=== PATIENT | female | born 1960 ===

== ENCOUNTER 2021-03-06 20:57 | Inpatient (IN) ==
[2021-03-07] MEDS ORDERED: Dextrose Gel 15 GM/37.5 ML TUBE PO PRN ×2 (00:38)
[2021-03-07] MEDS ORDERED: *HR* Dextrose 50 % in Water (Vial) 50 ML VIAL IVP PRN (00:38)
[2021-03-07] MEDS ORDERED: D5% in Water 1,000 ML IVC PRN (00:38)
[2021-03-07 00:42] LABS: Basophils % 0.2 %; Eosinophils % 0.2 %; Hematocrit 38.9 % (35.3-44.9); Hemoglobin 12.9 g/dL (11.5-15.4); Immature Granulocytes % 0.3 % (0-4); Lymphocytes # 0.6 K/mcL (0.6-4.6); Lymphocytes % 9.5 %; Mean Corpuscular HGB Conc 33.2 g/dL (31.6-35.5); Mean Corpuscular Hemoglobin 29.5 pg (28.0-33.3); Mean Platelet Volume 10.1 fL (9.4-12.4); Monocytes # 0.1 K/mcL (0.0-1.3); Monocytes % 0.9 %; Neutrophils # 5.7 K/mcL (1.6-8.9); Platelet Count 200 K/mcL (140-400); Red Blood Count 4.37 M/mcL (3.82-4.97); Red Cell Distribution Width 12.6 % (11.5-14.5); Segmented Neutrophils % 88.9 %; White Blood Count 6.4 K/mcL (4.3-11.1)
[2021-03-07 00:43] LABS: Bilirubin,Urine Negative (Negative); Blood,Urine Negative (Negative); Clarity,Urine Clear (Clear); Color,Urine Colorless (Yellow); Glucose,Urine (UA) >=1000 mg/dL (Normal); Ketones,Urine Negative (Negative); Leukocyte Esterase,Urine Negative (Negative); Nitrite,Urine Negative (Negative); Protein,Urine Negative (Neg-Trace); RBC,Urine 0-3 per hpf (0-3); Specific Gravity,Urine 1.009 (1.010-1.025); Squamous Epithelial Cell,Urine Few per hpf (None-Few); Urobilinogen,Urine Normal (Normal); WBC,Urine 0-3 per hpf (0-3)
[2021-03-07] MEDS ORDERED: Perflutren Lipid Microsphere 1.3 ML in 0.9 % Sodium Chloride 8.7 ML IVP PRN (00:54)
[2021-03-07] MEDS: Insulin LISPRO 300 UNITS/3 ML VIAL SUBQ SCH ×5 (01:00→19:51)
[2021-03-07 01:03] LABS: Alanine Aminotransferase 17 Units/L (7-52); Albumin 3.8 g/dL (3.5-5.7); Albumin/Globulin Ratio 1.2 (1.1-2.2); Alkaline Phosphatase 93 Units/L (34-104); Aspartate Amino Transferase 11 Units/L (13-39); BUN/Creatinine Ratio 29 (6-26); Bilirubin,Total 0.4 mg/dL (0.3-1.0); Blood Urea Nitrogen 30 mg/dL (6-20); Calcium 8.7 mg/dL (8.6-10.3); Carbon Dioxide 30 mEq/L (23-29); Chloride 95 mEq/L (98-107); Globulin 3.1 g/dL (2.4-3.5); Glucose 384 mg/dL (70-105); Osmolality,Calculated 302 (280-300); Sodium 135 mEq/L (136-145); Total Protein 6.9 g/dL (6.4-8.9); eGFR For African Americans > 60 (> 60); eGFR For Non-African Americans 54 (> 60)
[2021-03-07 01:06] LABS: Troponin I < 0.03 ng/mL (< 0.04)
[2021-03-07 01:18] LABS: Thyroid Stimulating Hormone 1.811 mcIU/mL (0.340-5.600)
[2021-03-07] MEDS ORDERED: Naloxone 0.4 MG/ML INJ IVP PRN (01:26)
[2021-03-07] MEDS ORDERED: Acetaminophen 325 MG TABLET PO PRN (01:26)
[2021-03-07 01:29] LABS: Folate 17.7 ng/mL (3.0-16.0)
[2021-03-07] MEDS: Azithromycin 500 MG in 0.9 % Sodium Chloride 250 ML IVPB SCH (01:31)
[2021-03-07] MEDS ORDERED: Furosemide 20 MG/2 ML VIAL IVP SCH (01:45)
[2021-03-07 03:24] LABS: Estimated Average Glucose 243 mg/dl; Hemoglobin A1C 10.1 %
[2021-03-07] MEDS: Nicotine 14 MG PATCH.TD24 TD SCH (04:10)
[2021-03-07] MEDS: Levalbuterol Neb 1.25 MG/3 ML IH SCH ×4 (04:23→21:51)
[2021-03-07 05:34] LABS: ABG Base Excess 5 mEq/L (-2 to 3); ABG HCO3 31 mEq/L (21-27); ABG Oxygen Saturation 89 % (95-98); ABG PCO2 48 mmHg (35-45); ABG PH 7.42 pH Units (7.32-7.45); ABG PO2 56 mmHg (85-104); ABG TCO2 32 mEq/L (20-26)
[2021-03-07] MEDS: *HR* Heparin 5,000 UNIT/ML VIAL SQ SCH ×3 (05:53→20:01)
[2021-03-07] MEDS: Furosemide 20 MG/2 ML VIAL IVP SCH ×2 (08:41→19:50)
[2021-03-07] MEDS: methylPREDNISolone 125 MG/2 ML VIAL IVP SCH ×2 (08:42→15:26)
[2021-03-07] MEDS ORDERED: *HR* OxyCODONE/APAP 5/325 TABLET PO ONE (11:49)
[2021-03-07] MEDS: *HR* OxyCODONE/APAP 5/325 TABLET PO PRN (18:45)
[2021-03-07] MEDS: carvediloL 25 MG TABLET PO SCH (19:50)
[2021-03-07] MEDS: Gabapentin 300 MG CAPSULE PO SCH (19:50)
[2021-03-07] MEDS: Insulin DETEMIR 100 UNIT/ML X5UNITS SUBQ SCH (19:50)
[2021-03-07] MEDS ORDERED: NON-FORMULARY MEDICATION 1 EACH EACH (Fluticasone Propion/Salmeterol [Fluticasone-Salmeter IH SCH (21:00)
[2021-03-07] MEDS: Budesonide/Formoterol 80/4.5 1 PUFF INH IH SCH (21:52)
[2021-03-08] MEDS: Azithromycin 500 MG in 0.9 % Sodium Chloride 250 ML IVPB SCH (00:10)
[2021-03-08] MEDS: methylPREDNISolone 125 MG/2 ML VIAL IVP SCH ×3 (00:11→16:21)
[2021-03-08] MEDS: Nicotine 14 MG PATCH.TD24 TD SCH (00:12)
[2021-03-08] MEDS ORDERED: Insulin DETEMIR 100 UNIT/ML X5UNITS SUBQ ONE (00:22)
[2021-03-08] MEDS: *HR* OxyCODONE/APAP 5/325 TABLET PO PRN ×3 (00:55→16:19)
[2021-03-08] MEDS: Levalbuterol Neb 1.25 MG/3 ML IH SCH ×4 (04:06→22:23)
[2021-03-08] MEDS: *HR* Heparin 5,000 UNIT/ML VIAL SQ SCH ×3 (06:27→20:35)
[2021-03-08 06:40] LABS: Hematocrit 36.2 % (35.3-44.9); Hemoglobin 12.2 g/dL (11.5-15.4); Mean Corpuscular HGB Conc 33.7 g/dL (31.6-35.5); Mean Corpuscular Hemoglobin 29.8 pg (28.0-33.3); Mean Corpuscular Volume 88.5 fL (83.0-100.0); Mean Platelet Volume 10.7 fL (9.4-12.4); Platelet Count 193 K/mcL (140-400); Red Blood Count 4.09 M/mcL (3.82-4.97); Red Cell Distribution Width 12.6 % (11.5-14.5); White Blood Count 8.3 K/mcL (4.3-11.1)
[2021-03-08 06:53] LABS: BUN/Creatinine Ratio 38 (6-26); Blood Urea Nitrogen 40 mg/dL (6-20); Calcium 8.7 mg/dL (8.6-10.3); Carbon Dioxide 28 mEq/L (23-29); Chloride 97 mEq/L (98-107); Glucose 394 mg/dL (70-105); Osmolality,Calculated 308 (280-300); Potassium 3.9 mEq/L (3.5-5.1); Sodium 136 mEq/L (136-145); eGFR For African Americans > 60 (> 60); eGFR For Non-African Americans 54 (> 60)
[2021-03-08] MEDS: Aspirin Enteric Coated 325 MG Tablet PO SCH (07:53)
[2021-03-08] MEDS: Gabapentin 300 MG CAPSULE PO SCH ×2 (07:54→20:36)
[2021-03-08] MEDS: amLODIPine 5 MG TABLET PO SCH (07:54)
[2021-03-08] MEDS: carvediloL 25 MG TABLET PO SCH ×2 (07:56→20:36)
[2021-03-08] MEDS: Furosemide 20 MG/2 ML VIAL IVP SCH ×2 (07:56→20:36)
[2021-03-08] MEDS: Insulin LISPRO 300 UNITS/3 ML VIAL SUBQ SCH ×4 (07:59→20:37)
[2021-03-08] MEDS: Insulin DETEMIR 100 UNIT/ML X5UNITS SUBQ SCH ×2 (07:59→20:36)
[2021-03-08] MEDS ORDERED: PANTOPRAZOLE SODIUM 40 MG PO SCH (09:00)
[2021-03-08] MEDS ORDERED: hydroCHLOROthiazide 25 MG TABLET PO SCH (09:00)
[2021-03-08] MEDS: Budesonide/Formoterol 80/4.5 1 PUFF INH IH SCH ×2 (10:43→22:24)
[2021-03-09] MEDS ORDERED: 0.9 % Sodium Chloride 250 ML ONE (00:01)
[2021-03-09] MEDS: *HR* OxyCODONE/APAP 5/325 TABLET PO PRN ×2 (00:09→16:32)
[2021-03-09] MEDS: Azithromycin 500 MG in 0.9 % Sodium Chloride 250 ML IVPB SCH (00:10)
[2021-03-09] MEDS: Nicotine 14 MG PATCH.TD24 TD SCH (00:16)
[2021-03-09] MEDS: Levalbuterol Neb 1.25 MG/3 ML IH SCH ×4 (03:34→21:56)
[2021-03-09 05:23] LABS: Hemoglobin 12.1 g/dL (11.5-15.4); Mean Corpuscular HGB Conc 32.7 g/dL (31.6-35.5); Mean Corpuscular Hemoglobin 29.2 pg (28.0-33.3); Mean Corpuscular Volume 89.4 fL (83.0-100.0); Mean Platelet Volume 10.5 fL (9.4-12.4); Platelet Count 187 K/mcL (140-400); Red Blood Count 4.14 M/mcL (3.82-4.97); Red Cell Distribution Width 12.8 % (11.5-14.5); White Blood Count 8.6 K/mcL (4.3-11.1)
[2021-03-09] MEDS: *HR* Heparin 5,000 UNIT/ML VIAL SQ SCH ×3 (05:31→21:33)
[2021-03-09] MEDS: methylPREDNISolone 125 MG/2 ML VIAL IVP SCH ×2 (05:31→16:31)
[2021-03-09 05:47] LABS: BUN/Creatinine Ratio 43 (6-26); Blood Urea Nitrogen 43 mg/dL (6-20); Calcium 8.9 mg/dL (8.6-10.3); Carbon Dioxide 32 mEq/L (23-29); Chloride 99 mEq/L (98-107); Glucose 210 mg/dL (70-105); Osmolality,Calculated 305 (280-300); Potassium 3.3 mEq/L (3.5-5.1); Sodium 139 mEq/L (136-145); eGFR For African Americans > 60 (> 60); eGFR For Non-African Americans 56 (> 60)
[2021-03-09] MEDS ORDERED: Potassium Chloride Elixir 20 MEQ/15 ML UDC PO ONE (07:39)
[2021-03-09] MEDS: Aspirin Enteric Coated 325 MG Tablet PO SCH (08:04)
[2021-03-09] MEDS: amLODIPine 5 MG TABLET PO SCH (08:05)
[2021-03-09] MEDS: Gabapentin 300 MG CAPSULE PO SCH ×2 (08:05→21:28)
[2021-03-09] MEDS: carvediloL 25 MG TABLET PO SCH ×2 (08:05→21:28)
[2021-03-09] MEDS: Furosemide 20 MG/2 ML VIAL IVP SCH ×2 (08:06→21:33)
[2021-03-09] MEDS: Insulin DETEMIR 100 UNIT/ML X5UNITS SUBQ SCH ×2 (08:08→21:30)
[2021-03-09] MEDS: Insulin LISPRO 300 UNITS/3 ML VIAL SUBQ SCH ×4 (08:08→21:31)
[2021-03-09] MEDS: Budesonide/Formoterol 80/4.5 1 PUFF INH IH SCH ×2 (10:07→21:53)
[2021-03-10] MEDS: Azithromycin 500 MG in 0.9 % Sodium Chloride 250 ML IVPB SCH (00:14)
[2021-03-10] MEDS: *HR* OxyCODONE/APAP 5/325 TABLET PO PRN ×2 (00:15→19:05)
[2021-03-10] MEDS: Nicotine 14 MG PATCH.TD24 TD SCH (00:22)
[2021-03-10] MEDS: Levalbuterol Neb 1.25 MG/3 ML IH SCH ×4 (03:27→22:16)
[2021-03-10 03:49] LABS: Basophils % 0.1 %; Hematocrit 36.5 % (35.3-44.9); Immature Granulocytes % 1.2 % (0-4); Lymphocytes # 0.4 K/mcL (0.6-4.6); Lymphocytes % 5.6 %; Mean Corpuscular HGB Conc 32.9 g/dL (31.6-35.5); Mean Corpuscular Hemoglobin 29.9 pg (28.0-33.3); Monocytes # 0.4 K/mcL (0.0-1.3); Monocytes % 5.1 %; Neutrophils # 6.9 K/mcL (1.6-8.9); Platelet Count 210 K/mcL (140-400); Red Blood Count 4.01 M/mcL (3.82-4.97); White Blood Count 7.8 K/mcL (4.3-11.1)
[2021-03-10 04:09] LABS: Calcium 8.2 mg/dL (8.6-10.3); Potassium 3.8 mEq/L (3.5-5.1)
[2021-03-10] MEDS: *HR* Heparin 5,000 UNIT/ML VIAL SQ SCH ×3 (05:39→20:25)
[2021-03-10] MEDS: methylPREDNISolone 125 MG/2 ML VIAL IVP SCH ×2 (05:39→16:54)
[2021-03-10] MEDS ORDERED: Regadenoson 0.4 MG/5 ML SYRINGE IVP ONE ×2 (07:14→07:18)
[2021-03-10] MEDS: carvediloL 25 MG TABLET PO SCH ×2 (09:35→19:41)
[2021-03-10] MEDS: amLODIPine 5 MG TABLET PO SCH (09:35)
[2021-03-10] MEDS: Gabapentin 300 MG CAPSULE PO SCH ×2 (09:35→19:41)
[2021-03-10] MEDS: Insulin DETEMIR 100 UNIT/ML X5UNITS SUBQ SCH ×2 (09:36→20:24)
[2021-03-10] MEDS: Aspirin Enteric Coated 325 MG Tablet PO SCH (09:36)
[2021-03-10] MEDS: Insulin LISPRO 300 UNITS/3 ML VIAL SUBQ SCH ×4 (09:40→19:45)
[2021-03-10] MEDS: Budesonide/Formoterol 80/4.5 1 PUFF INH IH SCH ×2 (10:55→22:16)
[2021-03-11 02:00] LABS: Basophils % 0.1 %; Hematocrit 35.9 % (35.3-44.9); Hemoglobin 11.4 g/dL (11.5-15.4); Immature Granulocytes % 1.2 % (0-4); Lymphocytes # 0.4 K/mcL (0.6-4.6); Lymphocytes % 6.3 %; Mean Corpuscular HGB Conc 31.8 g/dL (31.6-35.5); Mean Corpuscular Hemoglobin 28.8 pg (28.0-33.3); Mean Corpuscular Volume 90.7 fL (83.0-100.0); Mean Platelet Volume 10.9 fL (9.4-12.4); Monocytes # 0.3 K/mcL (0.0-1.3); Neutrophils # 6.1 K/mcL (1.6-8.9); Platelet Count 178 K/mcL (140-400); Red Blood Count 3.96 M/mcL (3.82-4.97); Red Cell Distribution Width 12.9 % (11.5-14.5); Segmented Neutrophils % 88.4 %; White Blood Count 6.9 K/mcL (4.3-11.1)
[2021-03-11 02:19] LABS: BUN/Creatinine Ratio 37 (6-26); Blood Urea Nitrogen 36 mg/dL (6-20); Calcium 8.3 mg/dL (8.6-10.3); Carbon Dioxide 28 mEq/L (23-29); Chloride 104 mEq/L (98-107); Glucose 222 mg/dL (70-105); Osmolality,Calculated 305 (280-300); Potassium 4.2 mEq/L (3.5-5.1); Sodium 140 mEq/L (136-145); eGFR For African Americans > 60 (> 60); eGFR For Non-African Americans 58 (> 60)
[2021-03-11] MEDS: Levalbuterol Neb 1.25 MG/3 ML IH SCH ×3 (03:48→15:44)
[2021-03-11] MEDS: Nicotine 14 MG PATCH.TD24 TD SCH (05:38)
[2021-03-11] MEDS: methylPREDNISolone 125 MG/2 ML VIAL IVP SCH (06:37)
[2021-03-11] MEDS: *HR* Heparin 5,000 UNIT/ML VIAL SQ SCH ×2 (06:38→15:30)
[2021-03-11] MEDS: Insulin LISPRO 300 UNITS/3 ML VIAL SUBQ SCH ×3 (08:13→12:26)
[2021-03-11] MEDS: Aspirin Enteric Coated 325 MG Tablet PO SCH (08:46)
[2021-03-11] MEDS: carvediloL 25 MG TABLET PO SCH (08:46)
[2021-03-11] MEDS: *HR* OxyCODONE/APAP 5/325 TABLET PO PRN ×2 (08:46→15:29)
[2021-03-11] MEDS: Gabapentin 300 MG CAPSULE PO SCH (08:46)
[2021-03-11] MEDS: amLODIPine 5 MG TABLET PO SCH (08:46)
[2021-03-11] MEDS ORDERED: Furosemide 40 MG TABLET PO SCH (10:15)
[2021-03-11] MEDS: Budesonide/Formoterol 80/4.5 1 PUFF INH IH SCH (11:20)
[2021-03-11] MEDS: Insulin DETEMIR 100 UNIT/ML X5UNITS SUBQ SCH (12:30)
[2021-03-11 15:54] VITALS: BP 161/74; PULSE 53; TEMP 98.5; O2SAT 97
[2021-03-12] MEDS ORDERED: predniSONE 20 MG TABLET PO SCH (09:00)
== END 2021-03-11 16:39 | disposition home health service (06) | DRG 140 ==
LOC: CDU → SUATTDRO 23:03 → CDU 23:06 → 2ANU 03-07 13:21 → SUATTDRO 03-09 15:42
PROVIDERS: ADMIT Internal Medicine; ATTEND Internal Medicine

== ENCOUNTER 2021-04-03 16:44 | Inpatient (IN) ==
[2021-04-03] MEDS ORDERED: 0.9 % Sodium Chloride 1,000 ML IVC ONE (19:49)
[2021-04-03] MEDS ORDERED: Ipratropium/Albuterol Neb 3 ML IH ONE (20:33)
[2021-04-03 20:39] LABS: Basophils % 0.3 %; Eosinophils % 0.6 %; Hematocrit 37.5 % (35.3-44.9); Hemoglobin 12.4 g/dL (11.5-15.4); Immature Granulocytes % 0.5 % (0-4); Lymphocytes # 1.6 K/mcL (0.6-4.6); Lymphocytes % 25.4 %; Mean Corpuscular HGB Conc 33.1 g/dL (31.6-35.5); Mean Corpuscular Hemoglobin 29.1 pg (28.0-33.3); Mean Platelet Volume 9.8 fL (9.4-12.4); Monocytes # 0.9 K/mcL (0.0-1.3); Monocytes % 13.9 %; Neutrophils # 3.8 K/mcL (1.6-8.9); Platelet Count 244 K/mcL (140-400); Red Blood Count 4.26 M/mcL (3.82-4.97); Red Cell Distribution Width 12.5 % (11.5-14.5); Segmented Neutrophils % 59.3 %; White Blood Count 6.4 K/mcL (4.3-11.1)
[2021-04-03 21:00] LABS: BUN/Creatinine Ratio 27 (6-26); Blood Urea Nitrogen 41 mg/dL (6-20); Calcium 9.3 mg/dL (8.6-10.3); Carbon Dioxide 34 mEq/L (23-29); Chloride 88 mEq/L (98-107); Glucose 405 mg/dL (70-105); Osmolality,Calculated 301 (280-300); Potassium 3.7 mEq/L (3.5-5.1); Sodium 132 mEq/L (136-145); eGFR For African Americans 43 (> 60); eGFR For Non-African Americans 36 (> 60)
[2021-04-03 21:08] LABS: Troponin I < 0.03 ng/mL (< 0.04)
[2021-04-03 21:12] LABS: Bacteria,Urine Few per hpf (None-Few); Bilirubin,Urine Negative (Negative); Blood,Urine Negative (Negative); Clarity,Urine Clear (Clear); Color,Urine Colorless (Yellow); Glucose,Urine (UA) 500 mg/dL (Normal); Ketones,Urine Negative (Negative); Leukocyte Esterase,Urine Negative (Negative); Nitrite,Urine Negative (Negative); PH,Urine 5.5 pH Units (5.0-8.0); Protein,Urine Negative (Neg-Trace); RBC,Urine 0-3 per hpf (0-3); Specific Gravity,Urine 1.008 (1.010-1.025); Squamous Epithelial Cell,Urine Few per hpf (None-Few); Urobilinogen,Urine Normal (Normal); WBC,Urine 0-3 per hpf (0-3)
[2021-04-03] MEDS ORDERED: Naloxone 0.4 MG/ML INJ IVP PRN (22:38)
[2021-04-03] MEDS ORDERED: Dextrose Gel 15 GM/37.5 ML TUBE PO PRN ×2 (23:11)
[2021-04-03] MEDS ORDERED: D5% in Water 1,000 ML IVC PRN (23:11)
[2021-04-03] MEDS ORDERED: *HR* Dextrose 50 % in Water (Vial) 50 ML VIAL IVP PRN (23:11)
[2021-04-03] MEDS ORDERED: Insulin DETEMIR 100 UNIT/ML X5UNITS SUBQ SCH (23:15)
[2021-04-03 23:49] LABS: Amphetamine Screen,Urine Negative ng/mL (Cutoff=1000); Barbiturate Screen,Urine Negative ng/mL (Cutoff=200); Benzodiazepines Screen,Urine Negative ng/mL (Cutoff=200); Cannabinoid Screen,Urine Positive ng/mL (Cutoff = 50); Cocaine Screen,Urine Negative ng/mL (Cutoff= 300); Opiate Screen,Urine Negative ng/mL (Cutoff=300); Phencyclidine Screen,Urine Negative ng/mL (Cutoff=25)
[2021-04-04] MEDS: Nicotine 14 MG PATCH.TD24 TD SCH (01:03)
[2021-04-04] MEDS: Ipratropium/Albuterol Neb 3 ML IH SCH ×4 (03:26→21:42)
[2021-04-04] MEDS ORDERED: Insulin LISPRO 300 UNITS/3 ML VIAL SUBQ ONE ×2 (04:09→05:51)
[2021-04-04 05:17] LABS: Basophils % 0.3 %; Hematocrit 37.3 % (35.3-44.9); Hemoglobin 12.6 g/dL (11.5-15.4); Immature Granulocytes % 0.3 % (0-4); Lymphocytes # 0.6 K/mcL (0.6-4.6); Lymphocytes % 10.6 %; Mean Corpuscular HGB Conc 33.8 g/dL (31.6-35.5); Mean Corpuscular Hemoglobin 29.8 pg (28.0-33.3); Mean Corpuscular Volume 88.2 fL (83.0-100.0); Mean Platelet Volume 10.3 fL (9.4-12.4); Monocytes # 0.1 K/mcL (0.0-1.3); Monocytes % 1.9 %; Neutrophils # 5.1 K/mcL (1.6-8.9); Platelet Count 235 K/mcL (140-400); Red Blood Count 4.23 M/mcL (3.82-4.97); Red Cell Distribution Width 12.4 % (11.5-14.5); Segmented Neutrophils % 86.9 %; White Blood Count 5.9 K/mcL (4.3-11.1)
[2021-04-04 05:31] LABS: Prothrombin Time 11.7 Seconds (9.4-12.1)
[2021-04-04 05:43] LABS: Albumin 3.7 g/dL (3.5-5.7); Albumin/Globulin Ratio 1.4 (1.1-2.2); Bilirubin,Total 0.5 mg/dL (0.3-1.0); Calcium 9.2 mg/dL (8.6-10.3); Globulin 2.7 g/dL (2.4-3.5); Magnesium 1.6 mg/dL (1.6-2.6); Potassium 3.8 mEq/L (3.5-5.1); Total Protein 6.4 g/dL (6.4-8.9)
[2021-04-04 05:51] LABS: Chol/HDL Ratio 3.5 (0-4.9); Cholesterol 186 mg/dL (< 200); HDL Cholesterol 53 mg/dL (40-59); LDL Cholesterol,Calculated 111 mg/dL (< 100); LDL Cholesterol,Direct 114 mg/dL (75-193); Triglycerides 111 mg/dL (< 150); Troponin I < 0.03 ng/mL (< 0.04)
[2021-04-04] MEDS: Gabapentin 300 MG CAPSULE PO SCH ×2 (07:59→21:29)
[2021-04-04] MEDS: carvediloL 6.25 MG TABLET PO SCH ×2 (07:59→21:29)
[2021-04-04] MEDS: amLODIPine 5 MG TABLET PO SCH (07:59)
[2021-04-04] MEDS: Insulin LISPRO 300 UNITS/3 ML VIAL SUBQ SCH ×5 (08:00→21:31)
[2021-04-04 11:35] LABS: Thyroid Stimulating Hormone 0.195 mcIU/mL (0.340-5.600)
[2021-04-04 12:05] LABS: Estimated Average Glucose 243 mg/dl; Hemoglobin A1C 10.1 %
[2021-04-04] MEDS ORDERED: Insulin LISPRO 300 UNITS/3 ML VIAL SUBQ SCH (17:54)
[2021-04-04] MEDS ORDERED: Insulin DETEMIR 100 UNIT/ML X5UNITS SUBQ SCH (21:00)
[2021-04-04] MEDS: Insulin DETEMIR 100 UNIT/ML X5UNITS SUBQ SCH (21:31)
[2021-04-04] MEDS ORDERED: Acetaminophen IV 1,000 MG/100 ML BAG IVPB ONE (22:03)
[2021-04-05 01:26] LABS: Calcium 9.1 mg/dL (8.6-10.3); Potassium 3.8 mEq/L (3.5-5.1)
[2021-04-05] MEDS: Ipratropium/Albuterol Neb 3 ML IH SCH ×4 (03:36→21:36)
[2021-04-05] MEDS: Insulin LISPRO 300 UNITS/3 ML VIAL SUBQ SCH ×4 (09:41→21:31)
[2021-04-05] MEDS: carvediloL 6.25 MG TABLET PO SCH ×2 (09:46→21:26)
[2021-04-05] MEDS: Gabapentin 300 MG CAPSULE PO SCH ×3 (09:46→21:27)
[2021-04-05] MEDS: amLODIPine 5 MG TABLET PO SCH (09:46)
[2021-04-05 13:36] LABS: % Iron Saturation 17 % (15-50); Iron 62 mcg/dL (50-170); Transferrin 264 mg/dL (203-362)
[2021-04-05 13:55] LABS: Ferritin 89 ng/mL (10-120)
[2021-04-05 13:59] LABS: Folate 9.3 ng/mL (3.0-16.0)
[2021-04-05] MEDS: Nicotine 14 MG PATCH.TD24 TD SCH ×2 (16:31→23:49)
[2021-04-05] MEDS: rOPINIRole 0.25 MG TABLET PO SCH ×2 (17:03→21:28)
[2021-04-05] MEDS: Azithromycin 250 MG TABLET PO SCH (17:03)
[2021-04-05] MEDS: predniSONE 20 MG TABLET PO SCH (17:03)
[2021-04-05] MEDS: *HR* HYDROcodone/Acet 5/325 mg TABLET PO PRN (21:27)
[2021-04-05] MEDS: Insulin DETEMIR 100 UNIT/ML X5UNITS SUBQ SCH (21:31)
[2021-04-06 01:48] LABS: Potassium 4.9 mEq/L (3.5-5.1)
[2021-04-06 02:24] LABS: Hematocrit 38.5 % (35.3-44.9); Hemoglobin 12.4 g/dL (11.5-15.4); Mean Corpuscular HGB Conc 32.2 g/dL (31.6-35.5); Mean Corpuscular Hemoglobin 29.2 pg (28.0-33.3); Mean Corpuscular Volume 90.6 fL (83.0-100.0); Mean Platelet Volume 10.9 fL (9.4-12.4); Platelet Count 219 K/mcL (140-400); Red Blood Count 4.25 M/mcL (3.82-4.97); Red Cell Distribution Width 12.8 % (11.5-14.5)
[2021-04-06] MEDS: Ipratropium/Albuterol Neb 3 ML IH SCH ×4 (04:01→22:55)
[2021-04-06] MEDS: amLODIPine 5 MG TABLET PO SCH (08:31)
[2021-04-06] MEDS: Insulin LISPRO 300 UNITS/3 ML VIAL SUBQ SCH ×4 (08:31→20:21)
[2021-04-06] MEDS: carvediloL 6.25 MG TABLET PO SCH ×2 (08:31→20:20)
[2021-04-06] MEDS: Gabapentin 300 MG CAPSULE PO SCH ×3 (08:31→20:20)
[2021-04-06] MEDS: rOPINIRole 0.25 MG TABLET PO SCH ×3 (08:31→20:20)
[2021-04-06] MEDS: *HR* HYDROcodone/Acet 5/325 mg TABLET PO PRN ×2 (12:28→23:43)
[2021-04-06] MEDS: predniSONE 20 MG TABLET PO SCH (16:01)
[2021-04-06] MEDS: Azithromycin 250 MG TABLET PO SCH (16:01)
[2021-04-06] MEDS: Insulin DETEMIR 100 UNIT/ML X5UNITS SUBQ SCH (20:21)
[2021-04-06] MEDS: Nicotine 14 MG PATCH.TD24 TD SCH (23:37)
[2021-04-07] MEDS: Ipratropium/Albuterol Neb 3 ML IH SCH ×4 (03:58→22:27)
[2021-04-07 05:07] LABS: Hematocrit 39.5 % (35.3-44.9); Mean Corpuscular HGB Conc 32.9 g/dL (31.6-35.5); Mean Corpuscular Hemoglobin 29.5 pg (28.0-33.3); Mean Corpuscular Volume 89.8 fL (83.0-100.0); Mean Platelet Volume 10.2 fL (9.4-12.4); Platelet Count 263 K/mcL (140-400); Red Cell Distribution Width 12.6 % (11.5-14.5)
[2021-04-07 05:19] LABS: White Blood Count 7.9 K/mcL (4.3-11.1)
[2021-04-07 05:22] LABS: BUN/Creatinine Ratio 34 (6-26); Blood Urea Nitrogen 34 mg/dL (6-20); Carbon Dioxide 29 mEq/L (23-29); Chloride 98 mEq/L (98-107); Glucose 341 mg/dL (70-105); Osmolality,Calculated 303 (280-300); Potassium 4.4 mEq/L (3.5-5.1); Sodium 136 mEq/L (136-145); eGFR For African Americans > 60 (> 60); eGFR For Non-African Americans 57 (> 60)
[2021-04-07 05:37] LABS: Thyroid Stimulating Hormone 0.643 mcIU/mL (0.340-5.600)
[2021-04-07 05:40] LABS: Triiodothyronine (T3) Free 2.9 pg/mL (2.50-3.90)
[2021-04-07] MEDS: Insulin LISPRO 300 UNITS/3 ML VIAL SUBQ SCH ×4 (09:11→20:53)
[2021-04-07] MEDS: rOPINIRole 0.25 MG TABLET PO SCH ×3 (09:12→20:54)
[2021-04-07] MEDS: amLODIPine 5 MG TABLET PO SCH (09:12)
[2021-04-07] MEDS: Gabapentin 300 MG CAPSULE PO SCH ×3 (09:12→20:54)
[2021-04-07] MEDS: carvediloL 6.25 MG TABLET PO SCH ×2 (09:13→20:54)
[2021-04-07] MEDS: *HR* HYDROcodone/Acet 5/325 mg TABLET PO PRN ×2 (10:55→20:55)
[2021-04-07] MEDS: predniSONE 20 MG TABLET PO SCH (14:17)
[2021-04-07] MEDS: Azithromycin 250 MG TABLET PO SCH (14:17)
[2021-04-07] MEDS: Insulin DETEMIR 100 UNIT/ML X5UNITS SUBQ SCH (20:54)
[2021-04-07] MEDS: Nicotine 14 MG PATCH.TD24 TD SCH (23:35)
[2021-04-08] MEDS: Ipratropium/Albuterol Neb 3 ML IH SCH ×4 (04:11→22:49)
[2021-04-08] MEDS: amLODIPine 5 MG TABLET PO SCH (09:56)
[2021-04-08] MEDS: Gabapentin 300 MG CAPSULE PO SCH ×3 (09:56→21:40)
[2021-04-08] MEDS: *HR* HYDROcodone/Acet 5/325 mg TABLET PO PRN ×2 (09:56→21:40)
[2021-04-08] MEDS: Insulin LISPRO 300 UNITS/3 ML VIAL SUBQ SCH ×4 (09:57→21:42)
[2021-04-08] MEDS: carvediloL 6.25 MG TABLET PO SCH ×2 (09:57→21:40)
[2021-04-08] MEDS: rOPINIRole 0.25 MG TABLET PO SCH ×3 (09:57→21:40)
[2021-04-08] MEDS: Azithromycin 250 MG TABLET PO SCH (14:14)
[2021-04-08] MEDS: predniSONE 20 MG TABLET PO SCH (14:14)
[2021-04-08] MEDS: Insulin DETEMIR 100 UNIT/ML X5UNITS SUBQ SCH (21:41)
[2021-04-08] MEDS: Nicotine 14 MG PATCH.TD24 TD SCH (23:10)
[2021-04-09] MEDS: Ipratropium/Albuterol Neb 3 ML IH SCH ×2 (03:51→10:34)
[2021-04-09 04:11] LABS: Adenovirus Not Detected (Not Detect); Bordetella Pertussis Not Detected (Not Detect); Chlamydophila pneumoniae Not Detected (Not Detect); Coronavirus 229E Not Detected (Not Detect); Coronavirus HKU1 Not Detected (Not Detect); Coronavirus NL63 Not Detected (Not Detect); Coronavirus OC43 Not Detected (Not Detect); Human Metapneumovirus Not Detected (Not Detect); Human Rhinovirus/Enterovirus Not Detected (Not Detect); Influenza A Subtype 2009 H1 Not Detected (Not Detect); Influenza B Not Detected (Not Detect); Mycoplasma pneumoniae Not Detected (Not Detect); Parainfluenza Virus 1 Not Detected (Not Detect); Parainfluenza Virus 2 Not Detected (Not Detect); Parainfluenza Virus 3 Not Detected (Not Detect); Parainfluenza Virus 4 Not Detected (Not Detect); Respiratory Syncytial Virus Not Detected (Not Detect); SARS-CoV-2 Not Detected (Not Detect)
[2021-04-09] MEDS: *HR* HYDROcodone/Acet 5/325 mg TABLET PO PRN (05:40)
[2021-04-09] MEDS: Insulin LISPRO 300 UNITS/3 ML VIAL SUBQ SCH ×2 (08:06→12:24)
[2021-04-09] MEDS: carvediloL 6.25 MG TABLET PO SCH (08:11)
[2021-04-09] MEDS: Gabapentin 300 MG CAPSULE PO SCH ×2 (08:12→13:29)
[2021-04-09] MEDS: rOPINIRole 0.25 MG TABLET PO SCH ×2 (08:13→13:29)
[2021-04-09] MEDS: amLODIPine 5 MG TABLET PO SCH (08:13)
[2021-04-09] MEDS ORDERED: Saline Nasal Spray 44 ML BOTTLE NS PRN (11:07)
[2021-04-09 12:16] VITALS: BP 139/83; PULSE 65; TEMP 97.8; O2SAT 98
[2021-04-09] MEDS: predniSONE 20 MG TABLET PO SCH (13:28)
[2021-04-09] MEDS: Azithromycin 250 MG TABLET PO SCH (13:29)
== END 2021-04-09 14:57 | disposition other institution (70) | DRG 58 ==
LOC: 3BNU 16:44 → EMEROOARM 16:44 → SUATTDRO 21:38 → 3BNU 21:47 → SUATTDRO 04-06 16:14
PROVIDERS: ADMIT Internal Medicine; ATTEND Registered Nurse

== ENCOUNTER 2021-11-08 23:16 | Observation (INO) ==
[2021-11-08] MEDS ORDERED: Isovue-370 500 ML BOTTLE IVP ONE (23:27)
[2021-11-08 23:45] LABS: Basophils % 0.6 %; Eosinophils # 0.1 K/mcL (0.0-0.6); Eosinophils % 1.5 %; Hematocrit 45.8 % (35.3-44.9); Hemoglobin 14.9 g/dL (11.5-15.4); Immature Granulocytes % 0.3 % (0-4); Lymphocytes # 1.2 K/mcL (0.6-4.6); Lymphocytes % 18.6 %; Mean Corpuscular HGB Conc 32.5 g/dL (31.6-35.5); Mean Corpuscular Hemoglobin 28.8 pg (28.0-33.3); Mean Corpuscular Volume 88.6 fL (83.0-100.0); Mean Platelet Volume 9.9 fL (9.4-12.4); Monocytes # 0.5 K/mcL (0.0-1.3); Monocytes % 7.5 %; Neutrophils # 4.7 K/mcL (1.6-8.9); Platelet Count 251 K/mcL (140-400); Red Blood Count 5.17 M/mcL (3.82-4.97); Red Cell Distribution Width 12.4 % (11.5-14.5); Segmented Neutrophils % 71.5 %; White Blood Count 6.6 K/mcL (4.3-11.1)
[2021-11-08 23:52] LABS: Prothrombin Time 11.4 Seconds (9.4-12.1)
[2021-11-08 23:55] LABS: Activated Partial Thrombo Time 29.6 Seconds (26.0-36.0)
[2021-11-09 00:06] LABS: Alanine Aminotransferase 11 Units/L (7-52); Albumin/Globulin Ratio 1.1 (1.1-2.2); Alkaline Phosphatase 113 Units/L (34-104); Aspartate Amino Transferase 9 Units/L (13-39); BUN/Creatinine Ratio 20 (6-26); Bilirubin,Indirect 0.3 mg/dL (0.0-1.0); Bilirubin,Total 0.3 mg/dL (0.3-1.0); Blood Urea Nitrogen 24 mg/dL (6-20); Calcium 9.6 mg/dL (8.6-10.3); Carbon Dioxide 28 mEq/L (23-29); Chloride 97 mEq/L (98-107); Globulin 3.8 g/dL (2.4-3.5); Glucose 370 mg/dL (70-105); Lipase 41 Units/L (11-82); Osmolality,Calculated 299 (280-300); Potassium 4.4 mEq/L (3.5-5.1); Sodium 135 mEq/L (136-145); Total Protein 7.8 g/dL (6.4-8.9); Troponin I < 0.03 ng/mL (< 0.04); eGFR For African Americans 55 (> 60); eGFR For Non-African Americans 46 (> 60)
[2021-11-09] MEDS ORDERED: Insulin Regular, Human 100 UNIT/ML SUBQ ONE (01:46)
[2021-11-09] MEDS ORDERED: Ondansetron ODT 4 MG TAB.RAPDIS SL PRN (02:42)
[2021-11-09] MEDS ORDERED: Melatonin 3 MG TABLET PO PRN (02:42)
[2021-11-09] MEDS ORDERED: Naloxone 0.4 MG/ML INJ IVP PRN (02:42)
[2021-11-09] MEDS ORDERED: Perflutren Lipid Microsphere 1.3 ML in 0.9 % Sodium Chloride 8.7 ML IVP PRN (02:47)
[2021-11-09] MEDS ORDERED: D5% in Water 1,000 ML IVC PRN (03:18)
[2021-11-09] MEDS ORDERED: Dextrose 4 GM Chewable Tablets PO PRN ×2 (03:18)
[2021-11-09] MEDS ORDERED: *HR* Dextrose 50 % in Water (Syg) 50 ML SYRINGE IVP PRN (03:18)
[2021-11-09 03:46] LABS: Bilirubin,Urine Negative (Negative); Blood,Urine Negative (Negative); Clarity,Urine Clear (Clear); Color,Urine Light-Yellow (Yellow); Glucose,Urine (UA) >=1000 mg/dL (Normal); Ketones,Urine Negative (Negative); Leukocyte Esterase,Urine Negative (Negative); Nitrite,Urine Negative (Negative); PH,Urine 6.5 pH Units (5.0-8.0); Protein,Urine 70 mg/dL (Neg-Trace); RBC,Urine 0-3 per hpf (0-3); Specific Gravity,Urine > 1.030 (1.010-1.025); Squamous Epithelial Cell,Urine Few per hpf (None-Few); Urobilinogen,Urine Normal (Normal); WBC,Urine 0-3 per hpf (0-3)
[2021-11-09 03:49] LABS: Amphetamine Screen,Urine Negative ng/mL (Cutoff=1000); Barbiturate Screen,Urine Negative ng/mL (Cutoff=200); Benzodiazepines Screen,Urine Negative ng/mL (Cutoff=200); Cannabinoid Screen,Urine Positive ng/mL (Cutoff = 50); Cocaine Screen,Urine Negative ng/mL (Cutoff= 300); Opiate Screen,Urine Negative ng/mL (Cutoff=300); Phencyclidine Screen,Urine Negative ng/mL (Cutoff=25)
[2021-11-09] MEDS ORDERED: Ipratropium/Albuterol Neb 3 ML IH PRN (04:00)
[2021-11-09] MEDS: Nicotine 21 MG PATCH.TD24 TD SCH (04:15)
[2021-11-09 04:41] LABS: Adenovirus Not Detected (Not Detect); Coronavirus 229E Not Detected (Not Detect); Coronavirus HKU1 Not Detected (Not Detect); Coronavirus NL63 Not Detected (Not Detect); Coronavirus OC43 Not Detected (Not Detect); Human Metapneumovirus Not Detected (Not Detect); Human Rhinovirus/Enterovirus Not Detected (Not Detect); Influenza A Subtype 2009 H1 Not Detected (Not Detect); Influenza B Not Detected (Not Detect); Parainfluenza Virus 1 Not Detected (Not Detect); Parainfluenza Virus 2 Not Detected (Not Detect); SARS-CoV-2 Not Detected (Not Detect)
[2021-11-09 04:42] LABS: Bordetella Pertussis Not Detected (Not Detect); Chlamydophila pneumoniae Not Detected (Not Detect); Mycoplasma pneumoniae Not Detected (Not Detect); Parainfluenza Virus 3 Not Detected (Not Detect); Parainfluenza Virus 4 Not Detected (Not Detect); Respiratory Syncytial Virus Not Detected (Not Detect)
[2021-11-09] MEDS: Insulin LISPRO 300 UNITS/3 ML VIAL SUBQ SCH ×3 (05:44→16:49)
[2021-11-09 07:12] LABS: Hematocrit 42.7 % (35.3-44.9); Hemoglobin 13.7 g/dL (11.5-15.4); Mean Corpuscular HGB Conc 32.1 g/dL (31.6-35.5); Mean Corpuscular Hemoglobin 28.5 pg (28.0-33.3); Platelet Count 228 K/mcL (140-400); Red Cell Distribution Width 12.4 % (11.5-14.5); White Blood Count 5.8 K/mcL (4.3-11.1)
[2021-11-09 07:26] LABS: INR 0.8; Prothrombin Time 9.2 Seconds (9.4-12.1)
[2021-11-09 07:41] LABS: Alanine Aminotransferase 9 Units/L (7-52); Albumin 3.8 g/dL (3.5-5.7); Albumin/Globulin Ratio 1.5 (1.1-2.2); Alkaline Phosphatase 99 Units/L (34-104); Aspartate Amino Transferase 9 Units/L (13-39); BUN/Creatinine Ratio 24 (6-26); Bilirubin,Total 0.2 mg/dL (0.3-1.0); Blood Urea Nitrogen 23 mg/dL (6-20); Calcium 9.2 mg/dL (8.6-10.3); Carbon Dioxide 26 mEq/L (23-29); Chloride 101 mEq/L (98-107); Chol/HDL Ratio 3.6 (0-4.9); Cholesterol 193 mg/dL (< 200); Globulin 2.6 g/dL (2.4-3.5); Glucose 242 mg/dL (70-105); HDL Cholesterol 53 mg/dL (40-59); LDL Cholesterol,Calculated 103 mg/dL (< 100); Magnesium 1.7 mg/dL (1.6-2.6); Osmolality,Calculated 294 (280-300); Phosphorous 2.6 mg/dL (2.7-4.5); Potassium 3.9 mEq/L (3.5-5.1); Sodium 136 mEq/L (136-145); Total Protein 6.4 g/dL (6.4-8.9); Triglycerides 186 mg/dL (< 150); Troponin I < 0.03 ng/mL (< 0.04); eGFR For African Americans > 60 (> 60); eGFR For Non-African Americans 59 (> 60)
[2021-11-09 07:52] LABS: Thyroid Stimulating Hormone 5.057 mcIU/mL (0.340-5.600)
[2021-11-09 08:01] LABS: Folate 12.8 ng/mL (3.0-16.0)
[2021-11-09] MEDS: Aspirin Enteric Coated 325 MG Tablet PO SCH (08:05)
[2021-11-09 08:47] LABS: Estimated Average Glucose 235 mg/dl; Hemoglobin A1C 9.8 %
[2021-11-09] MEDS: carvediloL 6.25 MG TABLET PO SCH (18:53)
[2021-11-09] MEDS: amLODIPine 5 MG TABLET PO SCH (18:53)
[2021-11-09] MEDS: Gabapentin 300 MG CAPSULE PO SCH (21:41)
[2021-11-10] MEDS: Insulin LISPRO 300 UNITS/3 ML VIAL SUBQ SCH ×2 (01:02→04:58)
[2021-11-10] MEDS: Nicotine 21 MG PATCH.TD24 TD SCH (03:49)
[2021-11-10] MEDS ORDERED: Acetaminophen 325 MG TABLET PO ONE (05:02)
[2021-11-10 07:12] VITALS: BP 165/96; PULSE 68; TEMP 98.1; O2SAT 95
[2021-11-10] MEDS: Gabapentin 300 MG CAPSULE PO SCH (07:54)
[2021-11-10] MEDS: Aspirin Enteric Coated 325 MG Tablet PO SCH (07:54)
[2021-11-10] MEDS: amLODIPine 5 MG TABLET PO SCH (07:55)
[2021-11-10] MEDS: carvediloL 6.25 MG TABLET PO SCH (07:55)
[2021-11-10] MEDS ORDERED: Insulin DETEMIR 100 UNIT/ML X5UNITS SUBQ SCH (09:00)
[2021-11-10] MEDS ORDERED: Torsemide 20 MG TABLET PO SCH (09:00)
[2021-11-10] MEDS ORDERED: rOPINIRole 0.25 MG TABLET PO SCH (09:00)
[2021-11-10] MEDS ORDERED: tiZANidine 4 MG TABLET PO SCH (09:00)
== END 2021-11-10 10:47 | disposition home health service (06) ==
LOC: EMEROOARM 23:16 → 3BNU 23:16 → SUATTDRO 11-09 01:58 → 3BNU 11-09 02:38
PROVIDERS: ADMIT Internal Medicine; ATTEND Internal Medicine

== ENCOUNTER 2022-01-16 04:13 | Inpatient (IN) ==
[2022-01-16] MEDS ORDERED: Naloxone 0.4 MG/ML INJ IVP PRN (06:35)
[2022-01-16] MEDS ORDERED: Melatonin 3 MG TABLET PO PRN (06:35)
[2022-01-16 07:11] LABS: Basophils % 0.5 %; Eosinophils # 0.2 K/mcL (0.0-0.6); Eosinophils % 3.2 %; Hematocrit 40.9 % (35.3-44.9); Hemoglobin 13.4 g/dL (11.5-15.4); Immature Granulocytes % 0.2 % (0-4); Lymphocytes # 1.9 K/mcL (0.6-4.6); Lymphocytes % 32.7 %; Mean Corpuscular HGB Conc 32.8 g/dL (31.6-35.5); Mean Corpuscular Hemoglobin 28.5 pg (28.0-33.3); Mean Platelet Volume 10.3 fL (9.4-12.4); Monocytes # 0.5 K/mcL (0.0-1.3); Monocytes % 8.3 %; Neutrophils # 3.1 K/mcL (1.6-8.9); Platelet Count 213 K/mcL (140-400); Red Cell Distribution Width 13.2 % (11.5-14.5); Segmented Neutrophils % 55.1 %; White Blood Count 5.7 K/mcL (4.3-11.1)
[2022-01-16 07:21] LABS: Prothrombin Time 11.2 Seconds (9.4-12.1)
[2022-01-16 07:26] LABS: Activated Partial Thrombo Time 30.5 Seconds (26.0-36.0)
[2022-01-16 07:32] LABS: Alanine Aminotransferase 16 Units/L (7-52); Albumin 3.7 g/dL (3.5-5.7); Albumin/Globulin Ratio 1.2 (1.1-2.2); Alkaline Phosphatase 104 Units/L (34-104); Aspartate Amino Transferase 13 Units/L (13-39); BUN/Creatinine Ratio 17 (6-26); Bilirubin,Total 0.4 mg/dL (0.3-1.0); Blood Urea Nitrogen 15 mg/dL (6-20); Calcium 8.9 mg/dL (8.6-10.3); Carbon Dioxide 27 mEq/L (23-29); Chloride 105 mEq/L (98-107); Chol/HDL Ratio 2.8 (0-4.9); Cholesterol 125 mg/dL (< 200); Glucose 178 mg/dL (70-105); HDL Cholesterol 44 mg/dL (40-59); LDL Cholesterol,Calculated 41 mg/dL (< 100); Magnesium 1.3 mg/dL (1.6-2.6); Osmolality,Calculated 295 (280-300); Potassium 3.8 mEq/L (3.5-5.1); Sodium 140 mEq/L (136-145); Total Protein 6.7 g/dL (6.4-8.9); Triglycerides 198 mg/dL (< 150); eGFR For African Americans > 60 (> 60); eGFR For Non-African Americans > 60 (> 60)
[2022-01-16] MEDS ORDERED: D5% in Water 1,000 ML IVC PRN (07:46)
[2022-01-16] MEDS ORDERED: *HR* Dextrose 50 % in Water (Syg) 50 ML SYRINGE IVP PRN (07:46)
[2022-01-16] MEDS ORDERED: Dextrose Gel 15 GM/37.5 ML TUBE PO PRN ×2 (07:46)
[2022-01-16 07:55] LABS: Estimated Average Glucose 223 mg/dl; Hemoglobin A1C 9.4 %
[2022-01-16] MEDS: Aspirin Enteric Coated 81 MG Tablet PO SCH (08:43)
[2022-01-16] MEDS: Gabapentin 300 MG CAPSULE PO SCH ×3 (08:43→20:01)
[2022-01-16] MEDS: Insulin LISPRO 300 UNITS/3 ML VIAL SUBQ SCH ×6 (08:44→17:11)
[2022-01-16] MEDS: Insulin DETEMIR 100 UNIT/ML X5UNITS SUBQ SCH ×2 (08:50→20:54)
[2022-01-16] MEDS: Budesonide/Formoterol 160/4.5 1 PUFF INH IH SCH ×2 (11:42→20:41)
[2022-01-16] MEDS: Ipratropium/Albuterol Neb 3 ML IH SCH ×3 (11:42→20:41)
[2022-01-16] MEDS: *HR* OxyCODONE Immed Rel 5 MG TABLET PO PRN (21:07)
[2022-01-17 02:15] LABS: Amphetamine Screen,Urine Negative ng/mL (Cutoff=1000); Barbiturate Screen,Urine Negative ng/mL (Cutoff=200); Benzodiazepines Screen,Urine Negative ng/mL (Cutoff=200); Cannabinoid Screen,Urine Positive ng/mL (Cutoff = 50); Cocaine Screen,Urine Negative ng/mL (Cutoff= 300); Opiate Screen,Urine Negative ng/mL (Cutoff=300); Phencyclidine Screen,Urine Negative ng/mL (Cutoff=25)
[2022-01-17 02:18] LABS: Bilirubin,Urine Negative (Negative); Blood,Urine Negative (Negative); Clarity,Urine Clear (Clear); Color,Urine Light-Yellow (Yellow); Glucose,Urine (UA) 300 mg/dL (Normal); Ketones,Urine Negative (Negative); Leukocyte Esterase,Urine Trace (Negative); Mucus,Urine Few per lpf (None-Few); Nitrite,Urine Negative (Negative); PH,Urine 5.5 pH Units (5.0-8.0); Protein,Urine Trace mg/dL (Neg-Trace); RBC,Urine 0-3 per hpf (0-3); Specific Gravity,Urine 1.019 (1.010-1.025); Squamous Epithelial Cell,Urine Moderate per hpf (None-Few); Urobilinogen,Urine Normal (Normal)
[2022-01-17] MEDS: Ipratropium/Albuterol Neb 3 ML IH SCH ×3 (04:11→16:08)
[2022-01-17] MEDS: Budesonide/Formoterol 160/4.5 1 PUFF INH IH SCH ×2 (07:40→20:40)
[2022-01-17] MEDS: Aspirin Enteric Coated 81 MG Tablet PO SCH (08:44)
[2022-01-17] MEDS: Gabapentin 300 MG CAPSULE PO SCH ×3 (08:44→21:44)
[2022-01-17] MEDS: *HR* OxyCODONE Immed Rel 5 MG TABLET PO PRN ×2 (08:44→18:08)
[2022-01-17] MEDS: Acetaminophen 325 MG TABLET PO PRN (08:50)
[2022-01-17] MEDS: Insulin LISPRO 300 UNITS/3 ML VIAL SUBQ SCH ×6 (08:51→18:12)
[2022-01-17] MEDS: Insulin DETEMIR 100 UNIT/ML X5UNITS SUBQ SCH ×2 (08:55→21:45)
[2022-01-17] MEDS: rOPINIRole 0.25 MG TABLET PO SCH ×2 (14:48→21:44)
[2022-01-17] MEDS ORDERED: Ipratropium/Albuterol Neb 3 ML IH PRN (16:02)
[2022-01-17] MEDS: Torsemide 20 MG TABLET PO SCH (18:08)
[2022-01-17] MEDS: *HR* Metformin 500 MG TABLET PO SCH (18:09)
[2022-01-17] MEDS: carvediloL 6.25 MG TABLET PO SCH (18:10)
[2022-01-18] MEDS: Gabapentin 300 MG CAPSULE PO SCH ×3 (08:33→21:40)
[2022-01-18] MEDS: *HR* Metformin 500 MG TABLET PO SCH ×2 (08:33→17:12)
[2022-01-18] MEDS: amLODIPine 5 MG TABLET PO SCH (08:33)
[2022-01-18] MEDS: rOPINIRole 0.25 MG TABLET PO SCH ×3 (08:33→21:40)
[2022-01-18] MEDS: Torsemide 20 MG TABLET PO SCH ×2 (08:33→17:12)
[2022-01-18] MEDS: carvediloL 6.25 MG TABLET PO SCH ×2 (08:35→17:12)
[2022-01-18] MEDS: *HR* OxyCODONE Immed Rel 5 MG TABLET PO PRN ×2 (08:35→17:17)
[2022-01-18] MEDS: Insulin DETEMIR 100 UNIT/ML X5UNITS SUBQ SCH ×2 (08:36→21:40)
[2022-01-18] MEDS: Aspirin Enteric Coated 81 MG Tablet PO SCH (08:36)
[2022-01-18] MEDS: Insulin LISPRO 300 UNITS/3 ML VIAL SUBQ SCH ×6 (08:37→17:11)
[2022-01-18] MEDS: Budesonide/Formoterol 160/4.5 1 PUFF INH IH SCH ×2 (11:00→20:18)
[2022-01-19] MEDS: *HR* OxyCODONE Immed Rel 5 MG TABLET PO PRN ×3 (01:15→18:37)
[2022-01-19] MEDS: Budesonide/Formoterol 160/4.5 1 PUFF INH IH SCH ×2 (09:32→20:21)
[2022-01-19] MEDS: Aspirin Enteric Coated 81 MG Tablet PO SCH (10:34)
[2022-01-19] MEDS: Gabapentin 300 MG CAPSULE PO SCH ×3 (10:34→21:45)
[2022-01-19] MEDS: rOPINIRole 0.25 MG TABLET PO SCH ×3 (10:35→21:46)
[2022-01-19] MEDS: amLODIPine 5 MG TABLET PO SCH (10:35)
[2022-01-19] MEDS: Torsemide 20 MG TABLET PO SCH ×2 (10:46→17:59)
[2022-01-19] MEDS: carvediloL 6.25 MG TABLET PO SCH ×2 (10:46→17:59)
[2022-01-19] MEDS: *HR* Metformin 500 MG TABLET PO SCH ×2 (10:46→17:58)
[2022-01-19] MEDS: Insulin LISPRO 300 UNITS/3 ML VIAL SUBQ SCH ×6 (10:49→17:54)
[2022-01-19] MEDS: Insulin DETEMIR 100 UNIT/ML X5UNITS SUBQ SCH ×2 (10:56→21:52)
[2022-01-19] MEDS: Acetaminophen 325 MG TABLET PO PRN (21:46)
[2022-01-19] MEDS: Ondansetron 4 MG/2 ML VIAL IVP PRN (21:52)
[2022-01-20] MEDS: Aspirin Enteric Coated 81 MG Tablet PO SCH (07:28)
[2022-01-20] MEDS: Torsemide 20 MG TABLET PO SCH ×2 (07:28→16:59)
[2022-01-20] MEDS: amLODIPine 5 MG TABLET PO SCH (07:28)
[2022-01-20] MEDS: carvediloL 6.25 MG TABLET PO SCH ×2 (07:29→16:59)
[2022-01-20] MEDS: Gabapentin 300 MG CAPSULE PO SCH ×3 (07:29→20:39)
[2022-01-20] MEDS: *HR* Metformin 500 MG TABLET PO SCH ×2 (07:29→16:59)
[2022-01-20] MEDS: rOPINIRole 0.25 MG TABLET PO SCH ×3 (07:30→20:39)
[2022-01-20] MEDS: Ondansetron 4 MG/2 ML VIAL IVP PRN ×2 (07:30→20:49)
[2022-01-20] MEDS: *HR* OxyCODONE Immed Rel 5 MG TABLET PO PRN ×2 (07:42→17:07)
[2022-01-20] MEDS: Budesonide/Formoterol 160/4.5 1 PUFF INH IH SCH ×2 (08:05→20:13)
[2022-01-20] MEDS: Insulin LISPRO 300 UNITS/3 ML VIAL SUBQ SCH ×6 (08:12→17:10)
[2022-01-20] MEDS: Insulin DETEMIR 100 UNIT/ML X5UNITS SUBQ SCH ×2 (08:12→20:40)
[2022-01-20] MEDS ORDERED: methylPREDNISolone 125 MG/2 ML VIAL IVP ONE (10:47)
[2022-01-20] MEDS: Acetaminophen 325 MG TABLET PO PRN (20:38)
[2022-01-20] MEDS: Nicotine 14 MG PATCH.TD24 TD SCH (20:39)
[2022-01-21] MEDS: Acetaminophen 325 MG TABLET PO PRN (04:25)
[2022-01-21] MEDS: Ondansetron 4 MG/2 ML VIAL IVP PRN ×2 (04:26→20:06)
[2022-01-21] MEDS: Budesonide/Formoterol 160/4.5 1 PUFF INH IH SCH ×2 (08:01→19:58)
[2022-01-21] MEDS: carvediloL 6.25 MG TABLET PO SCH ×2 (09:30→16:50)
[2022-01-21] MEDS: Gabapentin 300 MG CAPSULE PO SCH ×3 (09:30→20:17)
[2022-01-21] MEDS: Insulin DETEMIR 100 UNIT/ML X5UNITS SUBQ SCH ×2 (09:30→20:17)
[2022-01-21] MEDS: Insulin LISPRO 300 UNITS/3 ML VIAL SUBQ SCH ×6 (09:30→16:37)
[2022-01-21] MEDS: *HR* Metformin 500 MG TABLET PO SCH (09:30)
[2022-01-21] MEDS: amLODIPine 5 MG TABLET PO SCH (09:30)
[2022-01-21] MEDS: Aspirin Enteric Coated 81 MG Tablet PO SCH (09:30)
[2022-01-21] MEDS: Nicotine 14 MG PATCH.TD24 TD SCH (09:30)
[2022-01-21] MEDS: Torsemide 20 MG TABLET PO SCH ×2 (09:30→16:59)
[2022-01-21] MEDS: predniSONE 20 MG TABLET PO SCH (09:30)
[2022-01-21] MEDS: rOPINIRole 0.25 MG TABLET PO SCH ×3 (09:30→20:17)
[2022-01-21] MEDS: *HR* OxyCODONE Immed Rel 5 MG TABLET PO PRN ×2 (11:37→20:17)
[2022-01-21] MEDS: *HR* Heparin 5,000 UNIT/ML VIAL SQ SCH (16:49)
[2022-01-22] MEDS: *HR* Heparin 5,000 UNIT/ML VIAL SQ SCH ×2 (06:08→18:04)
[2022-01-22] MEDS: predniSONE 20 MG TABLET PO SCH (08:41)
[2022-01-22] MEDS: Gabapentin 300 MG CAPSULE PO SCH ×2 (08:42→15:29)
[2022-01-22] MEDS: Aspirin Enteric Coated 81 MG Tablet PO SCH (08:42)
[2022-01-22] MEDS: Torsemide 20 MG TABLET PO SCH ×2 (08:42→18:02)
[2022-01-22] MEDS: amLODIPine 5 MG TABLET PO SCH (08:43)
[2022-01-22] MEDS: rOPINIRole 0.25 MG TABLET PO SCH ×2 (08:43→15:29)
[2022-01-22] MEDS: carvediloL 6.25 MG TABLET PO SCH ×2 (08:44→16:49)
[2022-01-22] MEDS: Nicotine 14 MG PATCH.TD24 TD SCH (08:45)
[2022-01-22] MEDS: Insulin LISPRO 300 UNITS/3 ML VIAL SUBQ SCH ×6 (08:46→16:47)
[2022-01-22] MEDS: Insulin DETEMIR 100 UNIT/ML X5UNITS SUBQ SCH (08:47)
[2022-01-22] MEDS: Ondansetron 4 MG/2 ML VIAL IVP PRN (09:09)
[2022-01-22] MEDS: *HR* OxyCODONE Immed Rel 5 MG TABLET PO PRN ×2 (09:10→18:02)
[2022-01-22] MEDS: Budesonide/Formoterol 160/4.5 1 PUFF INH IH SCH (10:29)
[2022-01-22 10:31] VITALS: O2SAT 93
[2022-01-22 14:58] VITALS: BP 152/83; PULSE 72; TEMP 98
[2022-01-22 16:27] LABS: Influenza A PCR Negative (Negative); Influenza B PCR Negative (Negative); Resp. Syncytial Virus PCR Negative (Negative)
[2022-01-22 16:29] LABS: SARS-CoV-2 by PCR (In House) Negative (Negative)
[2022-01-22] MEDS: Acetaminophen 325 MG TABLET PO PRN (18:03)
== END 2022-01-22 18:35 | DRG 48 ==
LOC: 3BNU → SUATTDRO 05:49
PROVIDERS: ADMIT Internal Medicine; ATTEND Internal Medicine